=== PATIENT | male | born 1985 | race African-American/Black ===

== ENCOUNTER 2018-12-04 13:37 | Emergency (ER) | payer OTHER ==
[~2018-12-04] VITALS: Ht 170.2 cm; Wt 89.4 kg
[2018-12-04] MEDS ORDERED: NKM (13:47)
--- NOTE | 2018-12-04 14:14 | NUR ---
ED Nurse Note: Patient in bed 2. Accompanied by his female best frined. Seen by PA. Await urine and xray. Patient mobile to bathroom. Driven to hospital by best friend and walked into ER.
[2018-12-04 14:18] LABS: APPEARANCE,URINE SLIGHTLY CLOUDY; BILIRUBIN, URINE NEGATIVE (NEGATIVE); GLUCOSE, URINE (UA) NEGATIVE (NEGATIVE); KETONES,URINE NEGATIVE (NEGATIVE); LEUKOCYTE ESTERASE ,URINE 3+ (NEGATIVE); NITRITE,URINE NEGATIVE (NEGATIVE); PH,URINE 6 (4.5-8.0); PROTEIN,URINE 2+ (NEGATIVE); UROBILINOGEN,URINE NORMAL MG/DL (0.0-1.0)
[2018-12-04 14:25] VITALS: BP 146/76
[2018-12-04 14:25] LABS: COLOR,URINE YELLOW
[2018-12-04] MEDS ORDERED: CEPHALEXIN500 MG ORAL (14:39)
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
[2018-12-04 14:46] VITALS: BP 138/74
--- NOTE | 2018-12-04 14:48 | NUR ---
ER DISCHARGE NOTE: Patient is cleared to be discharged per ERMD, pt is aox4, on room air, with stable vital signs. pt was given dc and prescription instructions, pt was able to verbalize understanding, pt id band removed. pt is able to ambulate with steady gait. pt took all belongings. Prescription provided with advice. Patient requires antibiotic due to urine results. Patient educated regarding urine toxicology results and effects.
--- NOTE | 2018-12-04 14:57 | Diagnostic Imaging Report ---
Indication: Pain Forearm pain Findings: 2 views of the left forearm were obtained. No acute fractures, malalignment, erosions or periostitis are identified. No radiopaque foreign body identified. Soft tissues are unremarkable. Impression: Negative for acute injury.
== END 2018-12-04 14:51 | disposition home or self-care (01) ==
LOC: EMR 14:10
DX: F15.10 Other stimulant abuse, uncomplicated (principal); N39.0 Urinary tract infection, site not specified
CPT/HCPCS: 73090; 80307; 81001; 87086; Z7502; 99283